=== PATIENT | female | born 1955 | race Caucasian/White ===

== ENCOUNTER 2018-08-21 06:27 | Day surgery (SDC) | payer OTHER ==
[~2018-08-21] VITALS: Ht 160 cm; Wt 54.7 kg
[~2018-08-21 06:27] MED LIST: ALBIPROI INH; AMOX875 PO; Calcitrate + D1 TAB PO; HYDACE5 PO; NYQUIL; PRED20 PO; [UNRECOGNIZED DRUG - OTHER]
== END 2018-08-21 08:45 | disposition home or self-care (01) ==
LOC: ORSCSDS 06:27
PROVIDERS: Surgery
PROC: 0DBL8ZX Excision of Transverse Colon, Via Natural or Artificial Opening Endoscopic, Diagnostic (ICD-10-PCS; principal; 2018-08-21 08:00)
DX: Z12.11 Encounter for screening for malignant neoplasm of colon (principal); Z86.010 Personal history of colon polyps; K63.5 Polyp of colon; K64.8 Other hemorrhoids; F17.210 Nicotine dependence, cigarettes, uncomplicated; Z79.82 Long term (current) use of aspirin
CPT/HCPCS: 88305; J0330; J1980; J2405; J7120

== ENCOUNTER → 2019-12-30 | Outpatient (CLI) | payer MEDICARE, OTHER ==
[2019-12-31 09:09] LABS: ABBOTT SARS COV-2 IGG AB Negative (Negative)
== END ==
LOC: LAB SHORT 13:40 → LAB 13:40
PROVIDERS: Nurse Practitioner Family
DX: Z03.818 Encounter for observation for suspected exposure to other biological agents ruled out (principal)
CPT/HCPCS: 86769

== ENCOUNTER 2025-05-06 07:31 | Day surgery (SDC) | payer MEDICARE, OTHER ==
[~2025-05-06] VITALS: Ht 160 cm; Wt 49.5 kg
[2025-05-06] VITALS (21 sets, daily range): BP systolic 90–176; BP diastolic 64–102
[~2025-05-06 07:31] MED LIST changes: +ALBU90OI INH; +OLME20 PO; +PROP10 PO; +XANAX0.5 MG PO
--- NOTE | 2025-05-06 08:40 | NUR ---
05/06/25 0899 [place] CONFIRMED AND REVIEWED H&P, MEDCICATIONS, ALLERGIES, MEDICAL HISTORY, RESPIRATORY HISTORY, VITAL SIGNS, 3-LEAD EKG, CONSENTS, AND PHYSICIAN ORDERS. PATIENT CONFIRMS NPO STATUS AND AGREES WITH SCHEDULED PROCEDURE. MONITOR INTACT WITH CONTINUOUS PULSE OXIMETRY, CAPNOGRAPHY, 3-LEAD EKG, INTERMITTENT BP. SUPPLEMENTAL O2 TO BE TITRATED THROUGHOUT PROCEDURE TO MAINTAIN O2 SATURATION ABOVE 90%. PATIENT DETERMINED TO BE ASA APPROPRIATE FOR PROPOFOL SEDATION PRIOR TO START OF PROCEDURE BY DR. WADE.
--- NOTE | 2025-05-06 09:25 | NUR ---
REPORT RECEIVED FROM JADE RENEE. VSS. PT ON RA. PT A&OX4. PT ABLE TO REPOSITION SELF IN BED. PT DENIES PAIN, NAUSEA OR OTHER DISCOMFORTS.
== END 2025-05-06 09:45 | disposition home or self-care (01) ==
LOC: ORSCMMR 07:31 → ORD 08:30 → ORSCMMR 09:45
PROVIDERS: Surgery
PROC: 3E0H8KZ Introduction of Other Diagnostic Substance into Lower GI, Via Natural or Artificial Opening Endoscopic (ICD-10-PCS; principal; 2025-05-06 08:30)
PROC: 0DBN8ZX Excision of Sigmoid Colon, Via Natural or Artificial Opening Endoscopic, Diagnostic (ICD-10-PCS; principal; 2025-05-06 08:30)
PROC: 0DBK8ZX Excision of Ascending Colon, Via Natural or Artificial Opening Endoscopic, Diagnostic (ICD-10-PCS; principal; 2025-05-06 08:30)
DX: Z12.11 Encounter for screening for malignant neoplasm of colon (principal); D12.5 Benign neoplasm of sigmoid colon; D12.2 Benign neoplasm of ascending colon; K63.5 Polyp of colon; Z86.0100 Personal history of colon polyps, unspecified; Z85.3 Personal history of malignant neoplasm of breast; J44.9 Chronic obstructive pulmonary disease, unspecified; I10 Essential (primary) hypertension; Z79.899 Other long term (current) drug therapy; F17.210 Nicotine dependence, cigarettes, uncomplicated
CPT/HCPCS: 88305; J2704; J7120